=== PATIENT | male | born 1955 | race Caucasian/White ===

== ENCOUNTER 2018-06-30 19:04 | Emergency (ER) | payer BC, OTHER ==
[~2018-06-30 19:04] MED LIST: ISOVUE-370 76%-LOCM 1 ML ONE
[2018-06-30 19:40] LABS: #Basophils 0.1 thou/uL (0.0-0.2); #Eosinphils 0.2 thou/uL (0.0-0.7); #Lymphocytes 0.9 thou/uL (1.20-3.40); #Monocytes 0.6 thou/uL (0.11-0.59); #Neutrophils 6.2 thou/uL (1.40-6.50); %Basophils 0.6 % (0.0-1.0); %Lymphocytes 11.6 % (21.0-51.0); %Monocytes 7.6 % (0.0-10.0); %Neutrophils 78.1 % (42.0-75.0); Hemoglobin 14.8 g/dL (14.0-18.0); Mean Corpuscular HGB CONC 33.9 g/dL (32.0-36.0); Mean Corpuscular Volume 91.4 fL (78.0-98.0); Mean Platelet Volume 7.3 fL (7.4-10.4); Platelet Count 362 thou/uL (130-400); RBC Distribution Width 11.5 % (11.5-14.5); Red Blood Cell (RBC) Count 4.78 mill/uL (4.70-6.10); White Blood Cell (WBC) Count 7.9 thou/uL (4.8-10.8)
[2018-06-30 20:00] LABS: ALT (SGPT) 48 U/L (8-55); AST (SGOT) 39 U/L (5-34); Alkaline Phosphatase 114 U/L (40-150); Anion Gap 13 mmol/L (10-20); BUN (Urea Nitrogen) 13 mg/dL (8.4-25.7); Bilirubin, Total 0.5 mg/dL (0.2-1.2); Calc. Creatinine Clearance 0 mL/min (70-130); Calcium 9.9 mg/dL (7.8-10.44); Carbon Dioxide 27 mmol/L (23-31); Chloride 102 mmol/L (98-107); Estimated GFR-MDRD 84; Globulin 4.5 g/dL (2.4-3.5); Glucose 102 mg/dL (80-115); Potassium 3.7 mmol/L (3.5-5.1); Protein, Total 8.5 g/dL (5.8-8.1); Sodium 138 mmol/L (136-145)
[2018-06-30 20:02] LABS: CK (CPK) 51 U/L (30-200); Lipase 60 U/L (8-78)
--- NOTE | 2018-06-30 20:43 | RAD ---
PORTABLE CHEST ONE VIEW: 06/30/18 at 8:28 p.m. HISTORY: Fever. FINDINGS: Comparison made with exam of 10/08/15. The heart size is normal. The aorta is tortuous. The lungs are well expanded without lobar consolida tion, pneumothoraces, or pleural effusions. IMPRESSION: No radiographic evidence of acute cardiopulmonary process. POS: [facility]
[2018-06-30 21:06] LABS: Bilirubin Negative (Negative); Blood, Urine Negative (Negative); Clarity CLEAR (Clear); Glucose, Urine (Dipstick) Negative (Negative); Leukocyte Negative (Negative); Nitrite Negative (Negative); Protein, Urine (Dipstick) Negative (Neg-Trace); Specific Gravity, Urine 1.021 (1.002-1.036); Urobilinogen 0.2 mg/dL (0.2-1.0)
--- NOTE | 2018-06-30 23:04 | CT ---
CT ABDOMEN AND PELVIS WITH IV CONTRAST: HISTORY: Fever. Abdominal pain. Perineal pain. Prostate cancer, status post resection one year ago. COMPARISON: CT abdomen and pelvis from 10/08/2015. CT pelvis from 10/22/2015. FINDINGS: There is a residual fluid collection along the right pelvic wall since 10/22/2015 and is smaller, nestor suring 3.5 x 1.2 cm. No air is seen within this fluid collection. This fluid collection has thick w alls and mild adjacent inflammatory changes. There is sigmoid diverticulosis. The lung bases are unremarkable. There is fatty infiltration of the liver. The spleen, pancreas, ad renal glands, and left kidney are normal. Cortical cysts arising from the posterior aspect of the ri ght kidney are again seen. No calcified gallstones are identified. No free air, free fluid, or lymp hadenopathy is noted on the abdomen or pelvis. The small bowel loops are not abnormally dilated. IMPRESSION: 1. Residual fluid collection in the right pelvic wall, smaller than on 10/22/2015, with mild adjacen t inflammatory changes. The possibility of infection cannot be excluded. 2. Sigmoid diverticulosis. 4. Fatty liver. 5. Right renal cyst. POS: [facility]
== END 2018-06-30 22:54 | disposition home or self-care (01) ==
LOC: ERS 19:04
DX: R50.9 Fever, unspecified (principal); R10.9 Unspecified abdominal pain; I10 Essential (primary) hypertension; Z79.899 Other long term (current) drug therapy
CPT/HCPCS: 36415; 71045; 74177; 80053; 81003; 82550; 83605; 83690; 85025; 86618; 87040; 87086; 87804; 96360; 96361